=== PATIENT | female | born 1985 ===

== ENCOUNTER 2018-04-21 10:32 | Emergency (ER) | payer SELFPAY ==
--- NOTE | 2018-04-21 11:47 | EDM.PDOC ---
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 LMP in January. With cramping as well. . No problems with last pregnancies. Last time was 9 years ago. Taking vitamin daily. No smoking. No drugs or alcohol. Did have visit last week with labs. 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: Reports: Social & Family History - Tobacco Use Smoking Status *Q: Never Smoker - Caffeine Use Caffeine Use: Reports: Coffee - Recreational Drug Use Recreational Drug Use: No ED ROS GENERAL - Review of Systems Review Of Systems: See Below Constitutional: Reports: No Symptoms HEENT: Reports: No Symptoms Respiratory: Reports: No Symptoms Cardiovascular: Reports: No Symptoms Endocrine: Reports: No Symptoms GI/Abdominal: Reports: No Symptoms : Reports: Pain (cramping and spotting) ED EXAM - Physical Exam Exam: See Below Exam Limited By: No Limitations General Appearance: Alert, WD/WN, No Apparent Distress Ears: Normal External Exam, Normal Canal, Hearing Grossly Normal, Normal TMs Nose: Normal Inspection, Normal Mucosa, No Blood Throat/Mouth: Normal Inspection, Normal Lips, Normal Teeth, Normal Gums, Normal Oropharynx, Normal Voice, No Airway Compromise Head: Atraumatic, Normocephalic Neck: Normal Inspection, Supple, Non-Tender, Full Range of Motion Respiratory/Chest: No Respiratory Distress, Lungs Clear, Normal Breath Sounds, No Accessory Muscle Use, Chest Non-Tender Cardiovascular: Normal Peripheral Pulses, Regular Rate, Rhythm, No Edema, No Gallop, No JVD, No Murmur, No Rub GI/Abdominal Exam: Normal Bowel Sounds, Soft, Non-Tender, No Organomegaly, No Distention, No Abnormal Bruit, No Mass, Pelvis Stable (Female) Exam: Vaginal Bleeding (moderate amount noted in the os) Heart Tones: Not [place] Movement: Not Appreciated Course - Vital Signs Last Recorded V/S: Last Vital Signs Temp 98.6 F 04/21/18 11:07 Pulse 78 04/21/18 11:07 Resp 16 04/21/18 11:07 BP 109/67 04/21/18 11:07 Pulse Ox 100 04/21/18 11:07 - Orders/Labs/Meds Orders: Active Orders 24 hr Category Date Time Status OB Transvaginal [US] Stat Exams 04/21/18 11:49 Taken Labs: Laboratory Tests 04/21/18 04/21/18 Range/Units 11:30 11:30 WBC 6.3 (4.5-11.0) K/uL RBC 4.15 (3.30-5.50) M/uL Hgb 12.5 (12.0-15.0) g/dL Hct 36.9 (36.0-48.0) % MCV 89 (80-98) fL MCH 30 (27-31) pg MCHC 34 (32-36) % Plt Count 231 (150-400) K/uL Neut % (Auto) 61 (36-66) % Lymph % (Auto) 28 (24-44) % [place] % (Auto) 9 H (2-6) % Eos % (Auto) 2 (2-4) % Baso % (Auto) 0 (0-1) % HCG, Quant 66353 H (0-6) mIU/mL Departure - Departure Time of Disposition: 13:37 Disposition: Home, Self-Care 01 Clinical Impression: Incomplete - Discharge Information Instructions: Incomplete Miscarriage Referrals: Dorie Sewell, RN, [employer] [Primary Care Provider] - Forms: ED Department Discharge Additional Instructions: CBC WNL. Quantitative HCG at 25,000. Ultrasound reveals fetus measuring only 5 weeks. No heart tones. Discussed with pt and spouse that findings indicate miscarriage. Discussed options with pt. She will need to followup with primary care for repeat HCG every 48 hours until back to 0. Discussed emotional care and physical care related to miscarriage. Pt voices understanding. - Problem List & Annotations (1) Incomplete SNOMED Code(s): 132564328 Code(s): O03.4 - INCOMPLETE SPONTANEOUS WITHOUT COMPLICATION Status: Acute Priority: Medium Current Visit: Yes - My Orders Last 24 Hours: My Active Orders 04/21/18 11:49 OB Transvaginal [US] Stat - Assessment/Plan Last 24 Hours: My Active Orders 04/21/18 11:49 OB Transvaginal [US] Stat
== END 2018-04-21 13:57 | disposition home or self-care (01) ==
LOC: JP.ED 10:32
DX: O03.4 Incomplete spontaneous abortion without complication (principal)
CPT/HCPCS: 36415; 76817; 84702; 85025; 99283-25; 99284-25